=== PATIENT | male | born 1965 | race Caucasian/White ===

== ENCOUNTER 2016-09-27 11:21 | Inpatient (IN) | payer OTHER ==
[~2016-09-27] VITALS: Ht 175.3 cm; Wt 110.7 kg
--- NOTE | ~2016-09-27 | O ---
[facility] [place] [address] OPERATIVE REPORT Name: LYDIA TRIPATHI Room #: 539-P ADM IN M.R.#: [id number] Admission: 09/27/16 Attend Phys: Russell Olson MD Discharge: Date of : 61 Report #: [id number] THIS REPORT FOR: //name// CC: Jamir Olson DATE OF SERVICE: 09/27/2016 PREOPERATIVE DIAGNOSIS: Appendicitis. POSTOPERATIVE DIAGNOSIS: Perforated appendicitis. PROCEDURE: Laparoscopic appendectomy. SURGEON: Mo Iniguez MD PLATFORM ENGINEER: Debbie Chase, medical student. ANESTHESIA: General endotracheal anesthesia. ESTIMATED BLOOD LOSS: 10 mL. IV FLUIDS: See anesthesia record. SPECIMENS TO PATHOLOGY: Appendix and appendicolith. DRAINS PLACED: A 19-Surinamese Alvaro drain exiting the left lower quadrant 5 mm port site, which drain left in the right lower quadrant. FINDINGS: Perforated appendicitis with acute significant inflammation of appendix against the right anterior abdominal wall, appendicolith noted to have eroded completely through the base of the appendix. INDICATION FOR PROCEDURE: The patient is a 51-year-old male patient with history of abdominal pain for 1 to 2 days prior to presentation. He was evaluated in the Emergency Department where he was noted to have findings and exam consistent with acute appendicitis. CT scan had been obtained by the emergency department physicians and this demonstrated perforated appendicitis. General surgery was therefore consulted. The patient was admitted to the hospitalist, IV antibiotics were initiated. The patient was seen and detailed discussion of the risks and benefits of surgical intervention was held with the patient, potential risks of operation included bleeding, pain, infection, abscess, need for open operation, damage to surrounding structures such as bladder, ureter, small bowel and need for potential further operation in the future. After all the questions were answered to the patient's and family's satisfaction, written inform consent was obtained. [address] [address] OPERATIVE REPORT Name: LYDIA TRIPATHI Room #: 539-P ADM IN ..#: [id number] Admission: 09/27/16 Attend Phys: Russell Olson MD Discharge: Date of : 61 Report #: [id number] DESCRIPTION OF PROCEDURE: The patient was brought to the operating room and placed in a supine position. Timeout was taken to verify the patient's identity and to plan the procedure. SCDs were in place on the lower extremities bilaterally. Preoperative antibiotics were administered. Anesthesia was induced. The patient was intubated. Abdomen was sterilely prepped and draped in standard fashion. Left lower quadrant 5 mm incision was made after local anesthetic had been infiltrated. A 5 mm laparoscopic optical access technique was utilized with a 5 mm 0 degree laparoscope to enter the peritoneal cavity. Inspection of the viscera was performed after pneumoperitoneum had been successfully created. No obvious injuries to the viscera were identified. A 5 mm 30-degree laparoscope was utilized and a 12 mm port was placed at the supraumbilical site as well as a 5 mm suprapubic site under direct visualization. The patient was placed in steep Trendelenburg, right side up position. The right lower quadrant structures were noted to be significantly inflamed with omentum and loops of small bowel adherent to the area of the cecum. These were carefully dissected off using blunt dissection. The appendix was finally identified and was noted to be necrotic with a perforated base with an appendicolith visible through that perforation. Careful dissection of the base of the appendix was then performed. The mesoappendix was transected using Sonicision energy device. A clip was placed over the appendiceal artery with excellent hemostatic effect. The base of the appendix was then transected along the cecum using a linear cutting stapler with blue load one firing. The appendix and appendicolith as well as the mesoappendix were placed into an EndoCatch bag and removed from the umbilical port site. The right lower quadrant structures were again identified and the area was irrigated with approximately 3 liters of sterile warm saline, this was suctioned until clear. No further purulent material was visible within the right lower quadrant. A sheath of Surgicel was placed in the area of the transected mesoappendix and cecal base. Laparoscopic photographs had been taken at various points during this operation. The 12 mm port was then removed and fascia was closed at that level using 0 PDS [id number] suture under direct visualization. Further local anesthetic was infiltrated into each of the 3 port sites and the 12 mm fascial closure site was tied down under direct visualization. Prior to completion of the operation a 19-Surinamese Alvaro drain was brought into the field and the fluted portion was left in the right lower quadrant in the area of the cecal base. This was brought out to exit from the left lower quadrant 5 mm port site and was tied to the anterior abdominal wall skin using 2-0 nylon interrupted suture x 2. The pneumoperitoneum was then carefully relieved and the suprapubic 5 mm port was removed. The skin was closed at the suprapubic site and the 12 mm port site using 4-0 Monocryl subcuticular stitch after further local anesthetic had been infiltrated into each of the port sites. Dermabond was applied superficially at the supraumbilical and suprapubic port site skin. At this point, the case was ended, all instrumentation had been extracted and accounted for. All counts were correct per nursing report. [address] [place] [address] OPERATIVE REPORT Name: LYDIA TRIPATHI Room #: 539-P ADM IN M.R.#: [id number] Admission: 09/27/16 Attend Phys: Russell Olson MD Discharge: Date of : 61 Report #: [id number] patient was extubated and taken to the postoperative care unit in stable condition. By: [id number] Mo Iniguez MD /nt
--- NOTE | ~2016-09-27 | S ---
[facility] [place] [address] SURGICAL PATH RPT PROCEDURE Name: LYDIA TRIPATHI Room #: 539-P ADM IN M.R.#: [id number] Admission: 09/27/16 Date of : 61 Discharge: Report #: [id number] Path Case #: [id number] PATHOLOGY REPORT COLLECTION DATE: 09/27/2016 RECEIVED DATE: 09/28/2016 SUBMITTING PHYS: Dr. Mo Iniguez OTHER PHYS: Dr. Jamir Olson SPECIMEN(S) RECEIVED: A.Appendix * * * * * * * * * * * * FINAL DIAGNOSIS: Appendix, appendectomy: - Marked acute appendicitis along with marked serositis. - Fibrous obliteration of the tip. - Proximal margin showing marked active appendicitis along serositis. (IUV:csd; d/t: 09/29/2016) PATHOLOGIST: Abbie Rey M.D. REPORT ELECTRONICALLY SIGNED BY: Abbie Rey M.D. DATE/TIME: 09/29/2016 15:40 * * * * * * * * * * * * GROSS PATHOLOGY: Received in formalin labeled "kristin Garcia," is an appendix measuring 4.5 cm in length and up to 1.5 cm in diameter with a moderate amount of attached mesoappendix. The serosal surface is pink-montes to montes-campa and shaggy in appearance with a perforation noted 0.5 cm from the proximal margin. The surrounding serosal surface is inked black. Sectioning reveals a pinpoint to patent lumen filled with a slight amount of blood coagulum. The specimen is submitted representatively as follows: A1 proximal margin (to show area of perforation) and bisected tip A2 additional cross sections of appendix. (CAA; 09/28/2016) CLINICAL HISTORY: Acute appendicitis INITIAL CPT CODE(S): A; 21305 Professional services performed by [facility] at [facility] [address] [place] [address] SURGICAL PATH RPT PROCEDURE Name: DEUCE,LYDIA E Room #: 539-P ADM IN .R.#: [id number] Admission: 09/27/16 Date of : 61 Discharge: Report #: [id number] Path Case #: [id number] , [place] [address] Technical services performed by [email or web address] at [address] [place] [address], [facility] [address] [address]. [place] [address] PHONE: [phone] DIRECTOR: Rodrigo Ramirez M.D. * * * END OF REPORT * * *
--- NOTE | ~2016-09-27 | H ---
[facility] [place] [address] HISTORY AND PHYSICAL Name: LYDIA TRIPATHI Room #: 539-P ADM IN M.R.#: [id number] Admission: 09/27/16 Attend Phys: Russell Olson MD Discharge: Date of : 61 Report #: [id number] THIS REPORT FOR: //name// CC: Jamir Olson DATE OF SERVICE: 09/27/2016 CHIEF COMPLAINT: Abdominal pain. HISTORY OF PRESENT ILLNESS: The patient is a 51-year-old male with a history of hypertension, coronary artery disease, history of seizure disorder and hyperlipidemia, presented to the emergency room complaining of right lower quadrant abdominal pain. Symptoms have been ongoing since last night. Pain is primarily over the right lower quadrant with occasional radiation to the rest of the abdomen. It has been associated with nausea, vomiting and fever. Workup in the emergency room showed acute appendicitis with small perforation. The ER physician has called and discussed with Dr. Iniguez. I have been requested to admit the patient. PAST MEDICAL HISTORY: Significant for seizure as a child, ____ hyperlipidemia, history of vasectomy reversal, history of hemorrhoidectomy, history of coronary artery disease status post stent in 2013. He had a stress test in 2014, which was normal. ALLERGIES: No known drug allergy. HOME MEDICATIONS: Home medication lists were reviewed. Please look at the nursing documentation. SOCIAL HISTORY: No smoking, alcohol abuse, or illicit drug abuse. FAMILY HISTORY: Significant for heart disease. REVIEW OF SYSTEMS: CONSTITUTIONAL: He has gained some weight, unable to quantify. He has had fever, chills. EYES: No change in his vision. THROAT: Denies any sore throat. CARDIOVASCULAR: No chest pain, dizziness, or palpitations. RESPIRATORY: No cough or expectoration. GASTROINTESTINAL: As above. GENITOURINARY: No dysuria or hematuria. NEUROLOGIC: No focal numbness or weakness of the extremities. [facility] [address] [place] [address] HISTORY AND PHYSICAL Name: LYDIA TRIPATHI Room #: 539-P [facility] IN [facility].#: [id number] Admission: 09/27/16 Attend Phys: Russell Olson MD Discharge: Date of : 61 Report #: [id number] PSYCHIATRIC: No anxiety or depression. The 12-point review of system is negative other than the positive and the negative dictated in the history of present illness and the review of system. PHYSICAL EXAMINATION: VITAL SIGNS: Blood pressure is 157/100, heart rate of 93 per minute, afebrile. GENERAL: The patient is awake and alert, not in acute respiratory distress. EYES: Pupils equal, reactive to light, nonicteric conjunctivae. THROAT: Appears dry oral mucosa. NECK: Supple, no JVD, no bruit, no lymphadenopathy. CARDIOVASCULAR: S1, S2, negative S3, no murmur. CHEST: Bilateral air entry present. Clear on auscultation. ABDOMEN: Soft, bowel sounds present, no mass, no organomegaly. There is tenderness in the right lower quadrant, no rebound tenderness. PERIPHERY: No pedal edema. No calf tenderness. Dorsalis pedis 1+. NEUROLOGIC: No gross motor or sensory deficit. LABORATORY DATA: Reviewed. White count is 12.8, hemoglobin and hematocrit are 13.3 and 39, platelets 227. Differential ____ 4% bands. BUN and creatinine are 12 and 0.9, sodium is 138. Liver function tests within normal limits. UA is negative. CT of the abdomen and pelvis showed acute appendicitis. There is ____ level adjacent to the appendix worrisome for a small perforation with inflammation of the terminal ileum. There is also a left adrenal 3 cm nodule with indeterminate enhancing character. Dedicated CT or MRI of the adrenal gland is recommended. It also revealed nonobstructive 1-2 cm right nephrolithiasis. ASSESSMENT AND PLAN: 1. Acute appendicitis with small perforation. Dr. Iniguez has been contacted from the Emergency Room. Acute appendicitis, surgical treatment as per Dr. Iniguez. The patient will be continued on IV Zosyn. 2. Hypertension/coronary artery disease. The patient will be continued on present home medication. We will hold off on his aspirin and restart it in the morning. 3. Dyslipidemia. The patient will be continued on his atorvastatin. 4. Left adrenal nodule. The patient will further need a dedicated CT or an MRI of his adrenal gland done as outpatient. 5. Deep venous thrombosis prophylaxis. He will be placed on SCD on the leg for deep venous thrombosis prophylaxis. 6. History of seizure disorder. The patient will be continued on his Dilantin. [address] [address] HISTORY AND PHYSICAL Name: LYDIA TRIPATHI Room #: 539-P ADM IN M.R.#: [id number] Admission: 09/27/16 Attend Phys: Russell Olson MD Discharge: Date of : 61 Report #: [id number] Treatment plan has been explained to the patient and the family in detail. <ELECTRONICALLY SIGNED> By: Russell Olson MD 09/28/16 1256 [id number] Russell Olson MD /samantha
--- NOTE | ~2016-09-27 | HC ---
[facility] [place] [address] CONSULTATION Name: LYDIA TRIPATHI Room #: 539-P [facility] IN M.R.#: [id number] Admission: 09/27/16 Attend Phys: Russell Olson MD Discharge: Date of : 61 Report #: [id number] THIS REPORT FOR: //name// CC: Jamir Olson DATE OF SERVICE: 09/27/2016 CHIEF COMPLAINT: Abdominal pain. HISTORY OF PRESENT ILLNESS: The patient is a very pleasant 51-year-old male patient with history of coronary artery disease who has previously undergone cardiac stent placement. He presented to the emergency department with approximately 24 hours of lower abdominal pain. This initiated in his right lower quadrant. This was a sharp pain associated with nausea. No prior abdominal operations. He has been afebrile. Denies diaphoresis. Does have decreased appetite. PAST MEDICAL HISTORY: Positive for seizure disorder as a child, hyperlipidemia, previous hemorrhoids, coronary artery disease. PAST SURGICAL HISTORY: Positive for hemorrhoidectomy, vasectomy, cardiac stent placement. MEDICATIONS: Include aspirin 81 mg daily, fenofibrate, sertraline, bupropion, atorvastatin, lisinopril, metoprolol, . ALLERGIES: No known drug allergies. REVIEW OF SYSTEMS: CONSTITUTIONAL: Negative for fevers, chills or unwanted weight loss. OCULAR: No diplopia or visual change. HEENT: No dysphagia or odynophagia. PULMONARY: No productive cough, no hemoptysis. CARDIOVASCULAR: No chest pain or palpitation. GASTROINTESTINAL: Positive for abdominal pain and nausea as described in the HPI. No melena or hematochezia. GENITOURINARY: No dysuria or hematuria. ENDOCRINE: No heat or cold intolerance. NEUROLOGIC: No focal tingling or weakness. PHYSICAL EXAMINATION: GENERAL: The patient is afebrile. He is slightly hypertensive. He weighs 111 kilograms. He is awake, alert and oriented, in no acute distress. He does give appropriate history. He is fluent of speech with normal mood and affect appreciated. [facility] [address] [place] [address] CONSULTATION Name: LYDIA TRIPATHI Room #: 539-P [facility] IN M.R.#: [id number] Admission: 09/27/16 Attend Phys: Russell Olson MD Discharge: Date of : 61 Report #: [id number] HEENT: Shows head that is atraumatic and normocephalic. Cranial nerves are intact and symmetric bilateral. Mucosae are pink and moist. No icterus is appreciated. NECK: Supple, without lymphadenopathy. LUNGS: Clear to auscultation bilateral. HEART: Regular, without murmur. ABDOMEN: Soft and is tender to palpation in the right lower quadrant. He does show some guarding. No obvious palpable hernia. The patient is obese. EXTREMITIES: Without clubbing, cyanosis or edema. Distal pulses are intact. SKIN: Without focal breakdown or lesions appreciated. No obvious rashes. LABORATORY STUDIES: Reviewed. Basic metabolic profile is essentially unremarkable. Creatinine is 0.9, potassium is 3.6, AST of 15, ALT of 25, alkaline phos of 70. CBC shows hemoglobin of 13.3, platelets of 227, WBC of 12.9. Urinalysis unremarkable. CT scan of the abdomen and pelvis with contrast is reviewed. This shows large appendicolith with findings of acute appendicitis. A small fluid air level adjacent to the appendix is worrisome for perforation. No obvious free fluid or abscess is appreciated. However, there is inflammation of the terminal ileum, likely reactive change. There was an incidental 3 cm adrenal nodule which is indeterminant. Diverticulosis is also noted. IMPRESSION: 1. A 51-year-old male patient with acute appendicitis. Plan for laparoscopic appendectomy. Detailed discussion of the risks and benefits of surgical intervention held with the patient and family at the bedside. Risks including bleeding, pain, infection, abscess, need for further resection such as an ileocecectomy should perforation and acute inflammation of the cecum or terminal ileum be identified, possible need for open operation, possible need for further intervention such as drain placement should abscess occur. All questions were answered to the patient's satisfaction. Written informed consent was obtained. 2. The patient will be admitted to the hospitalist service postoperative for observation. Consultation very much appreciated. We will continue to follow closely and make further recommendations based upon clinical status, operative findings, laboratory findings and radiographic findings. By: [id number] Mo Iniguez MD /nt
[~2016-09-27 11:21] MED LIST: DILANTIN 100 M100 MG OR; VICODIN 5-5001 EACH PO; ZOCOR 20 MG TAB20 M1 OR
[2016-09-27] MEDS ORDERED: TRIGLIDE160 M1 PO (11:52)
[2016-09-27] MEDS ORDERED: ASPIR 8181 MG PO (11:52)
[2016-09-27] MEDS ORDERED: LIPITOR40 MG PO (11:53)
[2016-09-27] MEDS ORDERED: LISINOPRIL10 MG PO (11:53)
[2016-09-27] MEDS ORDERED: ZOLOFT 50 MG TA50 M1 PO (11:53)
[2016-09-27] MEDS ORDERED: WELLBUTRIN XL150 MG PO (11:53)
[2016-09-27] MEDS ORDERED: METOPROLOL SUCC50 MG PO (11:54)
[2016-09-27 12:03] LABS: URINE BILIRUBIN NEGATIVE (Negative); URINE BLOOD TRACE (Negative); URINE COLOR YELLOW; URINE GLUCOSE-RANDOM* NEGATIVE (Negative); URINE KETONES NEGATIVE (Negative); URINE NITRITE NEGATIVE (Negative); URINE PROTEIN (DIPSTICK) NEGATIVE (Negative); URINE UROBILINOGEN 0.2 E.U./dl (0.2-1.0)
[2016-09-27 12:09] LABS: HEMATOCRIT 39.3 % (42.0-52.0); HEMOGLOBIN 13.3 gm/dL (14.0-18.0); MCH 30.5 pg (26.0-34.0); MCHC 33.9 g/dL (28.0-37.0); MCV 89.9 fL (80.0-100.0); PLATELET COUNT 227 thou/uL (150-400); RBC 4.38 mil/uL (4.50-6.00); RDW 12.6 % (10.5-14.5); WBC 12.9 thou/uL (4.0-11.0)
[2016-09-27 12:11] LABS: MANUAL DIFF YES
[2016-09-27 12:23] LABS: ALBUMIN 4.3 g/dL (3.4-5.0); CALCIUM 9.4 mg/dL (8.5-10.1); CREATININE 0.9 mg/dL (0.6-1.3); POTASSIUM 3.6 mmol/L (3.5-5.1); TOTAL BILIRUBIN 0.6 mg/dL (<0.1-1.0); TOTAL PROTEIN 7.4 g/dL (6.4-8.2)
[2016-09-27 12:31] LABS: ABSOLUTE NEUTROPHILS 10.7 thou/uL (1.4-8.2); PLATELET ESTIMATE NORMAL; TOTAL CELL COUNT 100
[2016-09-28 05:21] LABS: MCH 30.7 pg (26.0-34.0); MCHC 33.8 g/dL (28.0-37.0); PLATELET COUNT 187 thou/uL (150-400); RBC 3.63 mil/uL (4.50-6.00); RDW 12.9 % (10.5-14.5); WBC 13.2 thou/uL (4.0-11.0)
[2016-09-28 05:34] LABS: HEMOGLOBIN 11.1 gm/dL (14.0-18.0); MANUAL DIFF YES
[2016-09-28 05:44] LABS: ALBUMIN 3.2 g/dL (3.4-5.0); CREATININE 1.1 mg/dL (0.6-1.3); POTASSIUM 3.6 mmol/L (3.5-5.1); TOTAL BILIRUBIN 0.6 mg/dL (<0.1-1.0); TOTAL PROTEIN 6.2 g/dL (6.4-8.2)
[2016-09-28 08:15] LABS: ABSOLUTE NEUTROPHILS 11.9 thou/uL (1.4-8.2); TOTAL CELL COUNT 100
[2016-09-28 08:16] LABS: ANISOCYTOSIS SLIGHT
[2016-09-29 04:20] LABS: HEMATOCRIT 29.3 % (42.0-52.0); HEMOGLOBIN 10.3 gm/dL (14.0-18.0); MCH 31.7 pg (26.0-34.0); MCV 90.5 fL (80.0-100.0); PLATELET COUNT 162 thou/uL (150-400); RBC 3.24 mil/uL (4.50-6.00); RDW 12.7 % (10.5-14.5); WBC 9.6 thou/uL (4.0-11.0)
[2016-09-29 04:34] LABS: CALCIUM 8.4 mg/dL (8.5-10.1); CREATININE 0.9 mg/dL (0.6-1.3); MAGNESIUM 1.9 mg/dL (1.8-2.4); POTASSIUM 3.5 mmol/L (3.5-5.1)
[2016-09-29 04:35] LABS: MANUAL DIFF YES
[2016-09-29 05:25] LABS: ABSOLUTE NEUTROPHILS 8.6 thou/uL (1.4-8.2); TOTAL CELL COUNT 100
[2016-09-30 06:00] LABS: HEMATOCRIT 30.7 % (42.0-52.0); HEMOGLOBIN 10.7 gm/dL (14.0-18.0); MCH 31.1 pg (26.0-34.0); MCHC 34.7 g/dL (28.0-37.0); MCV 89.6 fL (80.0-100.0); RBC 3.43 mil/uL (4.50-6.00); RDW 12.5 % (10.5-14.5); WBC 7.9 thou/uL (4.0-11.0)
[2016-09-30 06:23] LABS: CALCIUM 8.3 mg/dL (8.5-10.1); CREATININE 0.9 mg/dL (0.6-1.3); MAGNESIUM 1.9 mg/dL (1.8-2.4); POTASSIUM 3.4 mmol/L (3.5-5.1)
[2016-09-30] MEDS ORDERED: AUGMENTIN 875875 MG PO (17:07)
== END 2016-09-30 18:00 | disposition home or self-care (01) | DRG 340 ==
LOC: ER 11:21 → EROBS 14:22 → 5S 14:22
PROVIDERS: Internal Medicine; Nurse Practitioner Family; Otolaryngology; Physician Assistant
PROC: 0DTJ4ZZ Resection of Appendix, Percutaneous Endoscopic Approach (ICD-10-PCS; principal; 2016-09-27)
DX: K35.2 Acute appendicitis with generalized peritonitis (principal); I10 Essential (primary) hypertension; I25.10 Atherosclerotic heart disease of native coronary artery without angina pectoris; E78.5 Hyperlipidemia, unspecified; G40.909 Epilepsy, unspecified, not intractable, without status epilepticus; D64.9 Anemia, unspecified; Z95.5 Presence of coronary angioplasty implant and graft; Z82.49 Family history of ischemic heart disease and other diseases of the circulatory system; Z79.82 Long term (current) use of aspirin; Z79.899 Other long term (current) drug therapy
CPT/HCPCS: 10089; 50010; 50101; 50249; 50331; 50411; 50555; 50558; 50739; 50740; 50962; 51489; 51975; 52265; 53307; 54022; 54118; 55245; 56525; 56526; 56638; 62110; 62900; 70005